=== PATIENT | male | born 1960 | race African-American/Black ===

== ENCOUNTER → 2017-01-03 | Outpatient (CLI) | payer BC ==
[~2017-01-03] MED LIST: ACTONEL; ALIGN PO; ASPIR-LOW81 MG PO; AVAPRO TAB150 MG/TAB PO; AVELOX 400MG T400 MG PO; CALTRATE-600 W600 MG PO; CELCEPT PO; CELLCEPT 5500 MG/TAB PO; CELLCEPT250 MG PO; CENTRUM1 TAB PO; LOPRESSOR 550 MG/TAB PO; LOPRESSOR PO; MAGOX PO; MVI PO; NORVASC PO; NORVASC2.5 MG PO; PREDNISONE10 MG PO; PROGRAF 1MG1 MG PO; RANITIDINE HYD150 MG PO; TUMS 5001250 MG PO; ZANTAC 7575 MG PO; ZITHROMAX TRI-500 MG PO; prograf PO
== END ==
LOC: COL.VAS 14:23
DX: M79.89 Other specified soft tissue disorders (principal)

== ENCOUNTER 2020-08-16 13:20 | Emergency (ER) | payer BC ==
[~2020-08-16] VITALS: Ht 177.8 cm; Wt 100.5 kg
[2020-08-16 14:12] VITALS: BP 159/79; TEMP 98.4
[2020-08-16] MEDS ORDERED: MAGNESIUM250 M1 PO (14:29)
[2020-08-16 15:40] LABS: BASO % 0.1 % (0.0-2.0); EOS % 0.2 % (0-4.0); GRAN # 5.9 (1.4-6.5); GRAN % 67.3 % (42.2-75.2); HEMATOCRIT 44.2 % (42.0-52.0); HEMOGLOBIN 13.6 g/dl (13.5-18.0); LYMPH # 1.8 (1.2-3.4); LYMPH % 20.7 % (20.0-51.0); MEAN CELL VOLUME 94 fl (80.0-100.0); MEAN CORPUSCULAR HEMOGLOBIN 29 pg (27.0-31.0); MEAN CORPUSCULAR HGB CONC 31 g/dl (33.0-37.0); MEAN PLATELET VOLUME 12.2 fl (7.4-10.4); MONO % 11.5 % (1.7-9.3); PLATELET COUNT 214 K/mm3 (130-400); RED BLOOD COUNT 4.72 M/mm3 (4.20-5.60); REDCELL DISTRIBUTION WIDTH-CV 13.2 % (11.5-14.5)
[2020-08-16 16:20] LABS: ALBUMIN 4.3 gm/dL (3.5-5.0); BILIRUBIN,TOTAL 0.6 mg/dL (0.0-1.0); C-REACTIVE PROTEIN 1.7 mg/dL (0.0-0.9); CALCIUM 9.3 mg/dL (8.4-10.2); CREATININE, serum 1.82 (0.66-1.25); POTASSIUM 4.8 mmol/L (3.4-5.0); TOTAL PROTEIN 7.7 gm/dL (6.4-8.2)
[2020-08-16] MEDS ORDERED: BACTRIM DS 8001 TAB PO (17:33)
[2020-08-16 17:37] VITALS: PULSE 58
== END 2020-08-16 17:39 | disposition home or self-care (01) ==
LOC: COL.ER 13:20
PROVIDERS: Family Medicine; Nurse Practitioner Primary Care
DX: R51.9 Headache, unspecified (principal); M54.2 Cervicalgia; Z99.2 Dependence on renal dialysis; Z79.52 Long term (current) use of systemic steroids; Z79.82 Long term (current) use of aspirin
CPT/HCPCS: J2270

== ENCOUNTER 2021-06-24 10:35 | Observation (INO) | payer BC ==
[~2021-06-24] VITALS: Ht 177.8 cm; Wt 99.7 kg
[2021-06-24] VITALS (9 sets, daily range): BP systolic 117–165; BP diastolic 53–70; PULSE 50–86; TEMP 98–98.4
[~2021-06-24 10:35] MED LIST changes: +BACTRIM DS 8001 TAB PO; +MAGNESIUM250 M1 PO
[2021-06-24] MEDS ORDERED: PEPCID 20MG TAB20 MG (11:09)
[2021-06-24] MEDS ORDERED: HYGROTON 2525 MG/TAB (11:10)
--- NOTE | 2021-06-24 11:30 | NUR ---
PATIENT AND AMBULATED INTO SDC UNIT. PATIENT ALERT AND ORIENTED X 4. CONSENT EXPLAINED AND PATIENT SIGNED. HISTORY COMPLETED YESTERDAY. ASSESSMENT COMPLETED. LUNGS CTA. HEART S1S2 AND REGULAR. BOWEL SOUNDS HEARD. PULSES FELT. SEE PROCESS INTERVENTION FOR IV START.
[2021-06-24] MEDS ORDERED: NORCO 325 MG-51 TAB PO (14:08)
--- NOTE | 2021-06-24 17:05 | NUR ---
PATIENT IS VERY DROWSY POST OP. VSS. PATIENT DOESN'T APPEAR TO BE HAVING ANY PAIN OR NAUSEA. NOTED ABD MIDLINE DRESSING TO HAVE SHADOWING. PACU REPORTS THIS IS HOW THE POST OP BLEED STARTED IN THE PACU BEFORE THE I&D OF THE INCISION. WHEN NURSING TOOK DOWN THE POST OP DRESSING PATIENT WAS OOZING BLOOD FROM ABD INCISION. CALLED AND SOON ARRIVED AT BEDSIDE. APPLIED PRESSURE DRESSING TO ABD INCISION PER , WILL CONTINUE TO MONITOR. ALSO AT BEDSIDE. HEAD TO TOE ASSESSMENT COMPLETE. SCD'S TO BLE. IV FLUIDS INFUSING INTO RIGHT WRIST. 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 PATIENT HAS HX OF KIDNEY & PANCREATIC ORGAN TRANSPLANTS. ORIENTED FAMILY TO ROOM. CALL LIGHT IN REACH.
--- NOTE | 2021-06-24 18:00 | NUR ---
PATIENT WOKE UP AND SUDDENTLY HAD AN EPISODE OF NAUSEA WITH EMESIS. PATIENT EDUCATED TO SPLINT HIS STOMACH. NO BLEEDING NOTED TO NEW ABD PRESSURE DRESSING. WILL CONTINUE TO MONITOR
--- NOTE | 2021-06-24 21:00 | NUR ---
Pt. sitting up in bed. Pt. is A&OX3, assessment complete. INT to rt. wrist patent. Abd. midline incision with foam tape and gauze, quarter sized area of shadowing noted. PT. reports pain at a 4 on pain scale. Giving pain meds per orders. Pt. denies further needs, call light within reach.
[2021-06-25 04:30] VITALS: BP 141/70; PULSE 66; TEMP 98.7
--- NOTE | 2021-06-25 07:00 | NUR ---
Report received from CANDE Shane. Pt in bed resting, at bedside, denies neds, will coninue to monitor.
[2021-06-25 07:29] VITALS: BP 145/69; PULSE 66; TEMP 98.3
--- NOTE | 2021-06-25 08:30 | NUR ---
Assessment charted. Dr. Sharma here to see pt, will discharge today. Dressing changed to telfa and hypafix tape per verbal orders. Denies pain, will continue to monitor.
--- NOTE | 2021-06-25 09:07 | NUR ---
ALEKSANDR met with the patient and his , Sumi (ph#[phone]), to discuss discharge plan. The patient lives in [place] with his . He reports independence with ADLs and does not have any DME. The patient's PCP is Dr. López Sandy and he receives his medications from [facility]. The patient does not have a DPOA-HC, but he was interested in obtaining a form. ALEKASNDR provided. The patient plans on returning home with his upon discharge. Sumi states that their son will be coming to help them when they leave here. No additional needs at this time. *Discharge plan: home with family*
--- NOTE | 2021-06-25 09:43 | NUR ---
Initial visit; Patient thanked customer service cashier for looking in on him and offering God's blessings and to keep him in her prayers.
--- NOTE | 2021-06-25 10:40 | NUR ---
Discharge completed at this time. Pt received discharge packet, reviewed f/u appt, scripts, and answered all qustions. Pt left with all belongings via w/c with and surigcal staff. to drive home, criteria met.
== END 2021-06-25 10:40 | disposition home or self-care (01) ==
LOC: SDCO 10:35 → SURG 16:08
PROVIDERS: ADMIT Surgery
DX: K43.2 Incisional hernia without obstruction or gangrene (principal); K91.841 Postprocedural hemorrhage of a digestive system organ or structure following other procedure; I10 Essential (primary) hypertension; E11.9 Type 2 diabetes mellitus without complications; G47.33 Obstructive sleep apnea (adult) (pediatric); Z79.899 Other long term (current) drug therapy; Z79.82 Long term (current) use of aspirin; Z94.0 Kidney transplant status; Z94.83 Pancreas transplant status; Z82.49 Family history of ischemic heart disease and other diseases of the circulatory system; Z83.3 Family history of diabetes mellitus
CPT/HCPCS: C1781; G0378; G0379; J1170; J1720; J2405; J2550; J2704; J7030; J7507; J7512; J7517

== ENCOUNTER 2021-07-20 16:03 | Outpatient (CLI) | payer BC ==
[~2021-07-20] VITALS: Ht 177.8 cm; Wt 94.3 kg
[2021-07-20 16:00] VITALS: BP 109/68; PULSE 62; TEMP 98.2
[~2021-07-20 16:03] MED LIST changes: +ASPIRIN E.C. 8181 MG PO; +HYGROTON 2525 MG/TAB; +NORCO 325 MG-51 TAB PO; +PEPCID 20MG TAB20 MG
== END 2021-07-20 18:15 | disposition home or self-care (01) ==
LOC: EUO 16:03
DX: E86.0 Dehydration (principal)
CPT/HCPCS: J7030

== ENCOUNTER → 2021-07-21 | Emergency (ER) | payer BC ==
[~2021-07-21] VITALS: Ht 177.8 cm; Wt 95.5 kg
[2021-07-21 18:21] VITALS: TEMP 99.3
[2021-07-21 21:18] LABS: EOS % 0.6 % (0.0-4.0); GRAN # 2.2 K/mm3 (1.4-6.5); GRAN % 63.2 % (42.2-75.2); HEMATOCRIT 37.5 % (42.0-52.0); HEMOGLOBIN 12.1 g/dl (13.5-18.0); LYMPH # 0.9 K/mm3 (1.2-3.4); LYMPH % 24.3 % (20.0-51.0); MEAN CELL VOLUME 88 fl (80.0-100.0); MEAN CORPUSCULAR HEMOGLOBIN 28 pg (27-31); MEAN CORPUSCULAR HGB CONC 32 g/dl (33.0-37.0); MEAN PLATELET VOLUME 11.2 fl (7.4-10.4); MONO # 0.4 K/mm3 (0.1-0.6); MONO % 11.6 % (1.7-9.3); PLATELET COUNT 178 K/mm3 (130-400); RED BLOOD COUNT 4.28 M/mm3 (4.20-5.60); REDCELL DISTRIBUTION WIDTH-CV 13.2 % (11.5-14.5)
[2021-07-21 21:32] LABS: ALBUMIN 3.3 gm/dL (3.4-4.8); BILIRUBIN,TOTAL 0.5 mg/dL (0.2-1.2); C-REACTIVE PROTEIN 1.6 mg/dL (0.00-0.50); CREATININE, serum 1.73 mg/dL (0.72-1.25); POTASSIUM 4.1 mmol/L (3.5-4.5); TOTAL PROTEIN 6.6 gm/dL (6.2-8.1)
[2021-07-22 00:24] VITALS: BP 134/86; PULSE 86
== END ==
LOC: COL.ER 17:26
PROVIDERS: Nurse Practitioner Primary Care
DX: U07.1 COVID-19 (principal); R74.8 Abnormal levels of other serum enzymes; E11.22 Type 2 diabetes mellitus with diabetic chronic kidney disease; I12.9 Hypertensive chronic kidney disease with stage 1 through stage 4 chronic kidney disease, or unspecified chronic kidney disease; N18.9 Chronic kidney disease, unspecified; Z79.899 Other long term (current) drug therapy
CPT/HCPCS: J2405; J2550